=== PATIENT | female | born 1970 | race Caucasian/White ===

== ENCOUNTER 2025-06-03 18:04 | Emergency (ER) | payer BC, SELFPAY ==
[2025-06-03 18:04] VITALS: BMI 26.6
[2025-06-03 18:11] VITALS: BP 131/92
[2025-06-03 21:04] VITALS: BP 138/89
--- NOTE | 2025-06-03 22:24 | ED.GENMED ---
History of Present Illness
General
Chief Complaint: Eye Problems
Source: patient
Exam Limitations: none
Time Seen by Provider: 06/03/25 22:11
Nursing documentation reviewed up to this point in time: agreed with
History of Present Illness
History of Present Illness:
Note:
CHIEF COMPLAINT(S)
Burning sensation in the left eye with heightened sensitivity to light.
HISTORY OF PRESENT ILLNESS
The patient is a 55-year-old female who presented with complaints of a burning sensation and heightened sensitivity to light in her left eye. The symptoms began yesterday but became more noticeable this morning, accompanied by excessive watering of
the eye. The patient has a long history of wearing contact lenses since age 14 and attempted to use them today for driving due to lack of prescription sunglasses. The use of contact lenses seemed to exacerbate the symptoms, described as burning and
mild blurriness. She ceased wearing the contacts since arriving at the clinic around 5:45 PM.
Upon examination, topical anesthetic drops were instilled in the eye, resulting in temporary relief from the discomfort. This response indicated a likely corneal abrasion. The patient was advised against using contact lenses until after a complete
course of the prescribed antibiotics, estimated to take about three to five days.
The patient is advised to follow up with an college tutor at [facility], where she typically receives her eye exams, in three to four days to reassess the condition of her eye.
SOCIAL [employer]S AFFECTING HEALTH
The patient mentioned difficulty accessing prescription sunglasses, relying instead on contact lenses, which might contribute to her current eye irritation.
PROBLEM LIST
Acute:
- Corneal abrasion of the left eye
PLAN
- Prescribe an antibiotic eye drop to prevent infection in the corneal abrasion.
- Advise the patient to refrain from wearing contact lenses until the medication course is complete, typically three to five days.
- Administer a tetanus booster to prevent potential infection due to corneal abrasion, following standard document controller recommendations.
- Plan a follow-up eye examination at [facility] in three to four days.
DIFFERENTIAL DIAGNOSIS
The Differential Diagnosis includes, in no particular order and is not limited to:
1. Corneal abrasion
2. Conjunctivitis
3. Keratitis
4. Uveitis
5. Dry eye syndrome
6. Allergic conjunctivitis
7. Foreign body in the eye - no obvious foreign body seen on exam
Disposition:
SUMMARY OF ENCOUNTER
A 55-year-old female presented to the emergency department with left eye irritation that began immediately after removing her contact lenses. Examination revealed a corneal abrasion in the left eye at the 3 oclock position. Visual acuity was noted
to be normal. Management included the administration of a tetanus shot and the initiation of ciprofloxacin eye drops due to her contact lens use. She was instructed not to wear contact lenses for three to five days to allow the corneal abrasion to
heal.
PLAN
- Prescribe ciprofloxacin eye drops, typically used for bacterial conjunctivitis and prophylaxis for contact lens wearers.
- Advise the patient to avoid wearing contact lenses for the next three to five days.
PATIENT EDUCATION AND COUNSELING
The patient was informed about the corneal abrasion and the importance of adhering to the medication regimen. She was advised not to wear contact lenses until her symptoms improved and the course of treatment was completed.
FOLLOW-UP INSTRUCTIONS
The patient was advised to have a follow-up eye examination with her college tutor at [facility] in three to four days to reassess the condition of her eye.
MEDICATION RECONCILIATION
- Ciprofloxacin ophthalmic solution was prescribed.
- A tetanus booster was administered during the visit.
MEDICAL DECISION MAKING
- Complexity of Data Reviewed: Chronic conditions affecting care include a history of contact lens use. Differential diagnosis includes corneal abrasion, conjunctivitis, keratitis, uveitis, dry eye syndrome, allergic conjunctivitis, foreign body in
the eye, eyelid disorder, acute angle-closure glaucoma, and refractive error changes due to improper lens use.
- Data:
Category 1: Visual acuity tested; no additional lab tests reviewed.
Category 2: My independent interpretation of the corneal abrasion suggests it was caused by contact lens use.
Category 3: No discussions with other healthcare providers were noted.
- Risk: Prescription medication (ciprofloxacin) was prescribed due to the risk of infection associated with a corneal abrasion in a contact lens wearer.
DIAGNOSIS
- Corneal abrasion, left eye (ICD-10: S05.01XA)
Review of Systems
Review of Systems
All Other Systems: Not applicable
EENT: Reports other (Left eye pain)
Phy Exam
General Physical Exam
General Presentation: mild distress
General age: appears stated age
General Skin: warm and dry
General Habitus: normal
General Mental: alert
General Hydration: appears well hydrated
Neurological Exam
Neurological Exam: alert and oriented x3
Musculoskeletal Exam
Musculoskeletal Exam: full ROM and neuro vasc intact
Skin Exam
Skin Exam: normal color and warm/dry
Psychiatric Exam
Psychiatric Exam: normal mood/affect
Course
Orders/Labs/Results
Orders:
Orders
06/03/25 22:22
Ciprofloxacin HCl [Ciloxan 0.3% Ophthalmic Solution] See Dose Instructions OPHTH NOW STA
Tetanus/Diphth/Acelpertussis [Adacel] 0.5 ml IM .ONCE ONE
Vital Signs
Initial and Last Documented VS:
Initial Vital Signs
Temp Pulse Resp BP Pulse Ox
98.4 F 77 18 131/92 98
06/03/25 18:11 06/03/25 18:11 06/03/25 18:11 06/03/25 18:11 06/03/25 18:11
Last Documented Vital Signs
Temp Pulse Resp BP Pulse Ox
98.5 F 77 18 138/89 100
06/03/25 21:05 06/03/25 18:11 06/03/25 18:11 06/03/25 21:04 06/03/25 21:04
*Pulse Oximetry
SaO2: 100
Oxygen Mode of Delivery: Room air
Patient hypoxic: no
*Critical Care Note
Total Time (30-74mins, 75-104mins- exclusive of procedures): Not Applicable
ED Attending Note
-
Portions of this chart may have been created with voice recognition software.� Occasional wrong word or��sound alike� substitutions may have occurred due to the inherent limitations of voice recognition software.
Discharge Plan
Departure
Patient Disposition: Home (Routine Discharge)
Date of Disposition: 06/03/25
Time of Disposition: 22:27
Patient with high blood pressure during this ER visit?: Yes
Discharge Problem:
Abrasion, corneal
Instructions: Corneal Abrasion (DC), How to Use Eye Drops, BLOOD PRESSURE
Referrals:
Beth Hernández MD [Family Provider, Internal Medicine]
Activity Restrictions/Additional Instructions:
Please use the prescribed eyedrops as follows: 1 drop in the left eye every 2 hours while awake for the first 2 days and then every 5 hours while awake for days 3 through 5.
Please follow-up with your college tutor as discussed.
Do not wear your contact lenses until your eye is reevaluated
Thank You for choosing [facility].
It was a pleasure meeting you and taking part in your care. We hope for your continued healing and wellness.
Please read discharge instructions in their entirety. However, they are for general education and may not describe your exact diagnosis at discharge. Information on your ER visit and medical conditions were discussed with you along with appropriate
follow up information...
If indicated, please take your medications as instructed and indicated on discharge paperwork.
Please schedule a follow up appointment as directed. Call to schedule an appointment
Please return to the emergency department with ANY change in, persisting, or worsening of symptoms. If any of your symptoms do not improve, or persist, or become more severe within 6-12 hours, please return to the emergency department for further
care.
Please return to the emergency department if you develop a headache, neck pain/stiffness, fever greater than 100.4F, chest pain, shortness of breath, persistent nausea, vomiting, slurred speech, difficulty walking, numbness/tingling, weakness, signs
of infection or any other symptoms that are worrisome to you.
If you have any questions or concerns please do not hesitate to call the Hospital at or E-mail me directly at [email or web address]
Interventions
Interventions:
*Risk Screen - Suicide Last Done: 06/03/25 18:11
*General Assessment Last Done: 06/03/25 21:06
*Neglect/Abuse Screening Last Done: 06/03/25 21:06
*ED- Fall Risk Assessment Last Done: 06/03/25 21:06
*ED COVID-19 Vaccine History Last Done: 06/03/25 21:06
Discharge Date and Time
Print Language: AMHARIC
[2025-06-03 23:00] VITALS: BP 135/92
[2025-06-03] MEDS: CILOXAN 0.3% OPHTHALMIC SOLUTION 1 DROP OPHTH (23:01)
[2025-06-03] MEDS: ADACEL 0.5 ML IM (23:01)
== END 2025-06-03 23:00 | disposition home or self-care (01) ==
LOC: EMR 18:04
PROVIDERS: EMERGENCY PHYSICIAN Student in an Organized Health Care Education/Training Program; FAMILY PHYSICIAN Hospitalist
DX: S05.02XA Injury of conjunctiva and corneal abrasion without foreign body, left eye, initial encounter (principal); X58.XXXA Exposure to other specified factors, initial encounter; Z23 Encounter for immunization
CPT/HCPCS: 99282; 90471; 90715